=== PATIENT | female | born 1990 ===

== ENCOUNTER 2017-11-09 07:19 | Emergency (ER) | payer OTHER ==
[~2017-11-09] VITALS: Ht 162.6 cm; Wt 68.0 kg
[2017-11-09] MEDS ORDERED: DUI500 PO (08:40)
[2017-11-09] MEDS ORDERED: MUPIROCIN22 GM TOP (08:40)
== END 2017-11-09 08:59 | disposition home or self-care (01) ==
LOC: ER 07:19
DX: S80.271A Other superficial bite of right knee, initial encounter (principal); W55.01XA Bitten by cat, initial encounter; Y93.89 Activity, other specified; Y92.018 Other place in single-family (private) house as the place of occurrence of the external cause; Y99.8 Other external cause status